=== PATIENT | male | born 1985 | race Caucasian/White ===

== ENCOUNTER 2018-02-09 15:47 | Emergency (ER) | payer SELFPAY ==
--- NOTE | 2018-02-09 16:02 | ER Document Report ---
ED Medical Screen (RME) - General TRAVEL OUTSIDE OF THE [place] IN LAST 30 DAYS: No <KAREN LAROSE - Last Filed: 02/09/18 16:02> <CAYLA ABBOTT - Last Filed: 02/09/18 18:44> - General Chief Complaint: Overdose Stated Complaint: POSSIBLE OVERDOSE Time Seen by Provider: 02/09/18 15:58 Notes: 32 years old male with heroin addiction, apparently unintentionally overdosed on it last night., Sister brought him here because he also had any thoughts of ending his life. Not on any psychiatric medications. (KAREN LAROSE) - Related Data Allergies/Adverse Reactions: No Known Allergies Allergy (Unverified 02/09/18 15:49) - Vital signs Vitals: Temp Pulse Resp BP Pulse Ox 97.9 F 82 18 115/73 100 02/09/18 15:51 02/09/18 15:51 02/09/18 15:51 02/09/18 15:51 02/09/18 15:51 Course <KAREN LAROSE - Last Filed: 02/09/18 16:02> - Laboratory Result Diagrams: 02/09/18 16:23 02/09/18 16:23 <CAYLA ABBOTT - Last Filed: 02/09/18 18:44> - Re-evaluation Re-evalutation: 02/09/18 18:[address] patient on some clonidine and Prozac. Resting comfortably at this time. No acute distress. We will have mental health see if he can meet criteria for inpatient treatment as he has some passive suicidal ideation and has a substance abuse problem. May meet criteria for IVC. Family members and patient seem to be in agreement at this time. Laboratory 02/09/18 02/09/18 02/09/18 16:23 16:23 16:23 WBC 4.9 RBC 5.50 Hgb 16.6 Hct 48.4 MCV 88 MCH 30.2 MCHC 34.4 RDW 12.9 Plt Count 243 Seg Neutrophils % 64.6 Lymphocytes % 20.9 Monocytes % 10.9 Eosinophils % 2.4 Basophils % 1.2 Absolute Neutrophils 3.1 Absolute Lymphocytes 1.0 Absolute Monocytes 0.5 Absolute Eosinophils 0.1 Absolute Basophils 0.1 Sodium 143.6 Potassium 4.5 Chloride 106 Carbon Dioxide 25 Anion Gap 13 BUN 9 Creatinine 0.61 Est GFR ( Amer) > 60 Est GFR (Non-Af Amer) > 60 Glucose 100 Calcium 9.8 Total Bilirubin 1.1 Direct Bilirubin 0.2 Neonat Total Bilirubin Not Reportable Neonat Direct Bilirubin Not Reportable Neonat Indirect Bili Not Reportable AST 28 ALT 40 Alkaline Phosphatase 115 Total Protein 7.4 Albumin 4.5 Urine Color YELLOW Urine Appearance CLEAR Urine pH 8.0 Ur Specific [place] 1.010 Urine Protein NEGATIVE Urine Glucose (UA) NEGATIVE Urine Ketones NEGATIVE Urine Blood NEGATIVE Urine Nitrite NEGATIVE Urine Bilirubin NEGATIVE Urine Urobilinogen NEGATIVE Ur Leukocyte Esterase NEGATIVE Urine WBC (Auto) 0 Urine RBC (Auto) 1 Urine Mucus (Auto) RARE Urine Ascorbic Acid NEGATIVE Salicylates < 1.0 L Urine Opiates Screen Urine Methadone Screen Acetaminophen < 10 L Ur Barbiturates Screen Ur Phencyclidine Scrn Ur Amphetamines Screen U Benzodiazepines Scrn Urine Cocaine Screen U Marijuana (THC) Screen Serum Alcohol < 10 02/09/18 16:23 WBC RBC Hgb Hct MCV MCH MCHC RDW Plt Count Seg Neutrophils % Lymphocytes % Monocytes % Eosinophils % Basophils % Absolute Neutrophils Absolute Lymphocytes Absolute Monocytes Absolute Eosinophils Absolute Basophils Sodium Potassium Chloride Carbon Dioxide Anion Gap BUN Creatinine Est GFR ( Amer) Est GFR (Non-Af Amer) Glucose Calcium Total Bilirubin Direct Bilirubin Neonat Total Bilirubin Neonat Direct Bilirubin Neonat Indirect Bili AST ALT Alkaline Phosphatase Total Protein Albumin Urine Color Urine Appearance Urine pH Ur Specific [place] Urine Protein Urine Glucose (UA) Urine Ketones Urine Blood Urine Nitrite Urine Bilirubin Urine Urobilinogen Ur Leukocyte Esterase Urine WBC (Auto) Urine RBC (Auto) Urine Mucus (Auto) Urine Ascorbic Acid Salicylates Urine Opiates Screen UNCONFIRMED POSITIVE Urine Methadone Screen NEGATIVE Acetaminophen Ur Barbiturates Screen UNCONFIRMED POSITIVE Ur Phencyclidine Scrn NEGATIVE Ur Amphetamines Screen NEGATIVE U Benzodiazepines Scrn NEGATIVE Urine Cocaine Screen NEGATIVE U Marijuana (THC) Screen NEGATIVE Serum Alcohol (CAYLA ABBOTT) - Vital Signs Vital signs: Temp Pulse Resp BP Pulse Ox 97.9 F 82 18 115/73 100 02/09/18 15:51 02/09/18 15:51 02/09/18 15:51 02/09/18 15:51 02/09/18 15:51 - Laboratory Laboratory results interpreted by me: 02/09/18 16:23 Salicylates < 1.0 L Acetaminophen < 10 L Doctor's Discharge <KAREN LAROSE - Last Filed: 02/09/18 16:02> <CAYLA ABBOTT - Last Filed: 02/09/18 18:44> - Discharge Clinical Impression: Heroin abuse Condition: Good Referrals: SPARKLE IRWIN MD [ACTIVE STAFF] - Follow up as needed
[2018-02-09 16:46] LABS: ABSOLUTE BASOPHILS # (AUTO) 0.1 10^3/uL (0.0-0.2); ABSOLUTE EOSINOPHILS # (AUTO) 0.1 10^3/uL (0.0-0.6); ABSOLUTE MONOCYTES (AUTO) 0.5 10^3/uL (0.1-1.4); ABSOLUTE NEUT (AUTO) 3.1 10^3/uL (1.7-8.2); APPEARANCE,URINE CLEAR; BASOPHILS % (AUTO) 1.2 % (0-2); BILIRUBIN,URINE NEGATIVE (NEGATIVE); COLOR,URINE YELLOW; EOSINOPHILS % (AUTO) 2.4 % (0-6); GLUCOSE, URINE NEGATIVE (NEGATIVE); HEMATOCRIT 48.4 % (37.9-51.0); HEMOGLOBIN 16.6 g/dL (13.5-17.0); KETONES,URINE NEGATIVE (NEGATIVE); LEUKOCYTE ESTERASE,URINE NEGATIVE (NEGATIVE); LYMPHOCYTES % (AUTO) 20.9 % (13-45); MEAN CORPUSCULAR HEMOGLOBIN 30.2 pg (27.0-33.4); MEAN CORPUSCULAR HGB CONC 34.4 g/dL (32.0-36.0); MEAN CORPUSCULAR VOLUME 88 fl (80-97); MONOCYTES % (AUTO) 10.9 % (3-13); NITRITE,URINE NEGATIVE (NEGATIVE); PLATELET COUNT 243 10^3/uL (150-450); PROTEIN,URINE NEGATIVE (NEGATIVE); RED CELL DISTRIBUTION WIDTH 12.9 % (11.5-14.0); SEGMENTED NEUTROPHILS % (AUTO) 64.6 % (42-78); TOTAL CELLS COUNTED % (AUTO) 100 %; UROBILINOGEN,URINE NEGATIVE mg/dL (<2.0); WHITE BLOOD COUNT 4.9 10^3/uL (4.0-10.5)
[2018-02-09 17:01] LABS: URINE AMPHETAMINES SCREEN NEGATIVE; URINE BARBITURATES SCREEN UNCONFIRMED POSITIVE; URINE BENZODIAZEPINES SCREEN NEGATIVE; URINE COCAINE SCREEN NEGATIVE; URINE MARIJUANA (THC) SCREEN NEGATIVE; URINE METHADONE SCREEN NEGATIVE; URINE PHENCYCLIDINE SCREEN NEGATIVE
[2018-02-09 17:04] LABS: ALANINE AMINOTRANSFERASE 40 U/L (21-72); ALBUMIN 4.5 g/dL (3.5-5.0); ALKALINE PHOSPHATASE 115 U/L (38-126); ANION GAP 13 (5-19); ASPARTATE AMINO TRANSFERASE 28 U/L (17-59); BILIRUBIN,DIRECT 0.2 mg/dL (0.0-0.4); BILIRUBIN,TOTAL 1.1 mg/dL (0.2-1.3); BLOOD UREA NITROGEN 9 mg/dL (7-20); CALCIUM 9.8 mg/dL (8.4-10.2); CARBON DIOXIDE 25 mmol/L (22-30); CHLORIDE 106 mmol/L (98-107); GLUCOSE 100 mg/dL (75-110); SODIUM 143.6 mmol/L (137-145); TOTAL PROTEIN 7.4 g/dL (6.3-8.2)
[2018-02-09 17:06] LABS: POTASSIUM 4.5 mmol/L (3.6-5.0)
[2018-02-09 17:07] LABS: ACETAMINOPHEN < 10 ug/mL (10-30); ALCOHOL < 10 mg/dL (NONE DETECTED); SALICYLATE < 1.0 mg/dL (2.0-20.0)
[2018-02-09] MEDS ORDERED: CLONIDINE 0.1 MG/24 HR PATCH.TDWK TD ONE (17:21)
--- NOTE | 2018-02-09 17:24 | ER Document Report ---
ED Psych Disorder / Suicide - General Chief Complaint: Overdose Stated Complaint: POSSIBLE OVERDOSE Time Seen by Provider: 02/09/18 15:58 Notes: 32-year-old male to the emergency department for evaluation of overdose. Patient is a heroin addict. Has been using heroin for a long time. Has overdosed before. Today he thinks that maybe he did overdose. When asked if this was intentional he said no. States though that sometimes he wishes that he would not wake up after injecting. It would be easier if he was just . Has a baby on the way. 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 Was at a treatment facility 1 week ago. Was there for 4 days and then left voluntarily and immediately went back to using heroin. Denies any history of frequent fevers. No chest pain, shortness of breath, rashes or lesions. No prior history of osteomyelitis or endocarditis. Sister is present and states that his mother went to check on him and she could not wake him up. He had just injected heroin. No Narcan was given. TRAVEL OUTSIDE OF THE [place] IN LAST 30 DAYS: No - HPI Patient complains to provider of: Overdose Onset: Just prior to arrival - Related Data Allergies/Adverse Reactions: No Known Allergies Allergy (Unverified 02/09/18 15:49) Past Medical History - General Information source: Patient - Social History Smoking Status: Current Every Day Smoker Chew tobacco use (# tins/day): No Frequency of alcohol use: Occasional Drug Abuse: Heroin Lives with: Family Family History: Reviewed & Not Pertinent Patient has suicidal ideation: Yes Patient has homicidal ideation: No - Medical History Medical History: Negative Renal/ Medical History: Denies: Hx Peritoneal Dialysis Review of Systems - Review of Systems Notes: Constitutional: denies: Chills, Diaphoresis, Fever, Malaise, Weakness EENT: denies: Eye discharge, Blurred vision, Tearing, Double vision, Nose congestion, Nose discharge, Throat swelling, Mouth pain Cardiovascular: denies: Palpitations, Heart racing, Orthopnea, Dyspnea, Chest pain Respiratory: denies: Cough, Hurts to breathe, Wheezing, Shortness of breath Gastrointestinal: denies: Abdominal pain, Diarrhea, Nausea, Vomiting, Black stools, bright red blood in stool Genitourinary: denies: Burning, Dysuria, Discharge, Frequency, Flank pain, Hematuria Musculoskeletal: denies: Joint pain, Joint swelling, Muscle pain, Muscle stiffness, back pain Hematologic/Lymphatic: denies: Anemia, Easy bleeding, Easy bruising, Blood clots Neurological/Psychological: denies: Confusion, Dementia, Depression, Loss of consciousness. Does have a history of substance abuse Skin: No lesions, no masses, no skin breakdown, no abscesses Physical Exam - Vital signs Vitals: Temp Pulse Resp BP Pulse Ox 97.9 F 82 18 115/73 100 02/09/18 15:51 02/09/18 15:51 02/09/18 15:51 02/09/18 15:51 02/09/18 15:51 Interpretation: Normal - General General appearance: Appears well, Alert - HEENT Head: Normocephalic, Atraumatic Eyes: Normal Pupils: PERRL - Respiratory Respiratory status: No respiratory distress Chest status: Nontender Breath sounds: Normal Chest palpation: Normal - Cardiovascular Rhythm: Regular Heart sounds: Normal auscultation Murmur: No - Abdominal Inspection: Normal Distension: No distension Bowel sounds: Normal Tenderness: Nontender Organomegaly: No organomegaly - Back Back: Normal, Nontender - Extremities General upper extremity: Normal inspection, Nontender, Normal color, Normal ROM , Normal temperature General lower extremity: Normal inspection, Nontender, Normal color, Normal ROM , Normal temperature, Normal weight bearing. No: Nelia's sign - Neurological Neuro grossly intact: Yes Cognition: Normal Orientation: AAOx4 [place] Coma Scale Eye Opening: Spontaneous [place] Coma Scale Verbal: Oriented [place]inta Coma Scale Motor: Obeys Commands Aminta Coma Scale Total: 15 Speech: Normal Motor strength normal: LUE, RUE, LLE, RLE Sensory: Normal - Psychological Associated symptoms: Normal affect, Normal mood - Skin Skin Temperature: Warm Skin Moisture: Dry Skin Color: Normal Course - Re-evaluation Re-evalutation: 02/09/18 17:26 Laboratory 02/09/18 02/09/18 02/09/18 16:23 16:23 16:23 WBC 4.9 RBC 5.50 Hgb 16.6 Hct 48.4 MCV 88 MCH 30.2 MCHC 34.4 RDW 12.9 Plt Count 243 Seg Neutrophils % 64.6 Lymphocytes % 20.9 Monocytes % 10.9 Eosinophils % 2.4 Basophils % 1.2 Absolute Neutrophils 3.1 Absolute Lymphocytes 1.0 Absolute Monocytes 0.5 Absolute Eosinophils 0.1 Absolute Basophils 0.1 Sodium 143.6 Potassium 4.5 Chloride 106 Carbon Dioxide 25 Anion Gap 13 BUN 9 Creatinine 0.61 Est GFR ( Amer) > 60 Est GFR (Non-Af Amer) > 60 Glucose 100 Calcium 9.8 Total Bilirubin 1.1 Direct Bilirubin 0.2 Neonat Total Bilirubin Not Reportable Neonat Direct Bilirubin Not Reportable Neonat Indirect Bili Not Reportable AST 28 ALT 40 Alkaline Phosphatase 115 Total Protein 7.4 Albumin 4.5 Urine Color YELLOW Urine Appearance CLEAR Urine pH 8.0 Ur Specific [place] 1.010 Urine Protein NEGATIVE Urine Glucose (UA) NEGATIVE Urine Ketones NEGATIVE Urine Blood NEGATIVE Urine Nitrite NEGATIVE Urine Bilirubin NEGATIVE Urine Urobilinogen NEGATIVE Ur Leukocyte Esterase NEGATIVE Urine WBC (Auto) 0 Urine RBC (Auto) 1 Urine Mucus (Auto) RARE Urine Ascorbic Acid NEGATIVE Salicylates < 1.0 L Urine Opiates Screen Urine Methadone Screen Acetaminophen < 10 L Ur Barbiturates Screen Ur Phencyclidine Scrn Ur Amphetamines Screen U Benzodiazepines Scrn Urine Cocaine Screen U Marijuana (THC) Screen Serum Alcohol < 10 02/09/18 16:23 WBC RBC Hgb Hct MCV MCH MCHC RDW Plt Count Seg Neutrophils % Lymphocytes % Monocytes % Eosinophils % Basophils % Absolute Neutrophils Absolute Lymphocytes Absolute Monocytes Absolute Eosinophils Absolute Basophils Sodium Potassium Chloride Carbon Dioxide Anion Gap BUN Creatinine Est GFR ( Amer) Est GFR (Non-Af Amer) Glucose Calcium Total Bilirubin Direct Bilirubin Neonat Total Bilirubin Neonat Direct Bilirubin Neonat Indirect Bili AST ALT Alkaline Phosphatase Total Protein Albumin Urine Color Urine Appearance Urine pH Ur Specific [place] Urine Protein Urine Glucose (UA) Urine Ketones Urine Blood Urine Nitrite Urine Bilirubin Urine Urobilinogen Ur Leukocyte Esterase Urine WBC (Auto) Urine RBC (Auto) Urine Mucus (Auto) Urine Ascorbic Acid Salicylates Urine Opiates Screen UNCONFIRMED POSITIVE Urine Methadone Screen NEGATIVE Acetaminophen Ur Barbiturates Screen UNCONFIRMED POSITIVE Ur Phencyclidine Scrn NEGATIVE Ur Amphetamines Screen NEGATIVE U Benzodiazepines Scrn NEGATIVE Urine Cocaine Screen NEGATIVE U Marijuana (THC) Screen NEGATIVE Serum Alcohol Currently patient's labs are fairly unremarkable. Patient is here voluntarily. I am concerned that he is a heavy substance abuser and is likely going to overdose sooner rather than later. I am going to place him on a 24-hour petition. [facility] allows this. Family members bagging for this to happen. Patient is willing to have this happen as well if he can get treatment. - Vital Signs Vital signs: Temp Pulse Resp BP Pulse Ox 97.9 F 82 18 115/73 100 02/09/18 15:51 02/09/18 15:51 02/09/18 15:51 02/09/18 15:51 02/09/18 15:51 - Laboratory Result Diagrams: 02/09/18 16:23 02/09/18 16:23 Laboratory results interpreted by me: 02/09/18 16:23 Salicylates < 1.0 L Acetaminophen < 10 L - EKG Interpretation by Me EKG shows normal: Sinus rhythm, [place], Intervals, QRS Complexes, ST-T Waves [place]/QRS: RBBB Discharge - Discharge Clinical Impression: Heroin abuse Condition: Good Referrals: SPARKLE IRWIN MD [ACTIVE STAFF] - Follow up as needed
[2018-02-09] MEDS ORDERED: FLUOXETINE HCL 20 MG CAPSULE PO ONE (17:25)
--- NOTE | 2018-02-09 18:17 | EKG REPORT ---
SEVERITY:- ABNORMAL ECG - SINUS RHYTHM INCOMPLETE RIGHT BUNDLE BRANCH BLOCK : Confirmed by: Prasad Ortiz MD 09-Feb-2018 18:17:24
[2018-02-10] MEDS ORDERED: ACETAMINOPHEN 325 MG TABLET PO ONE (06:31)
[2018-02-10] MEDS ORDERED: HYDROXYZINE PAMOATE 50 MG CAPSULE PO ONE (10:10)
--- NOTE | 2018-02-10 10:10 | ER Document Report ---
Doctor's Note Notes: 02/10/18 10:08 Rounds: Chart reviewed and patient interviewed. Patient is addicted to heroin, last used about 1 AM. Customarily uses it every 4-6 hours. Patient says that he is undergoing withdrawal now. Having abdominal cramping and diarrhea. Patient is being evaluated here additionally because he had expressed some suicidal thoughts. Lab studies were positive for opioids and barbiturates. Vital signs are all essentially normal. We will try some Vistaril to see if it helps patient's symptoms. Patient appears to be medically stable for transfer or discharge. Toma Pinzon MD
[2018-02-10] MEDS ORDERED: BENZTROPINE MESYLATE 1 MG TABLET PO ONE (10:44)
[2018-02-10] MEDS ORDERED: HALOPERIDOL 5 MG TABLET PO ONE (10:44)
[2018-02-10] MEDS ORDERED: VENLAFAXINE HCL 37.5 MG CAP.SR.24H PO ONE (10:45)
[2018-02-10] MEDS ORDERED: BUSPIRONE HCL 10 MG TABLET PO ONE (10:45)
[2018-02-10 12:48] VITALS: BP 118/64
--- NOTE | 2018-02-14 11:48 | PSYCHOLOGICAL NOTE ---
Psych Note - Psych Note Date seen by psych provider: 02/10/18 Time seen by psych provider: 07:25 Psych Note: Reason for Consult: overdose Consent permissions: Patient's sister, Liam 32-year-old male to the emergency department for evaluation of heroin overdose. Patient reports he arrived to [facility] ED because he overdosed. He reports that he is trying to get help he currently feels "bad because of withdrawals." He states he has been using for a couple years since 2009 when his director [place] brought in a Percocet; "since then it has been every day nonstop." He reports he uses approximately 1 g of heroin daily. He reports that he did go to a detox center a couple weeks ago however left prior to finishing treatment and states that he has been on a "worse path than before" and used immediately upon release. He reports he left because he did not want to be there anymore; "I want for the wrong reason." He reports that he does not have any history of mental health is never been to outpatient mental health or substance abuse treatment. He states he accidentally overdosed and does "sometimes" have passive site suicidal ideation i.e. no plans means or intent. Patient reports that he would like help with assistance in detox because "I do not want to feel like this anymore." Behavior health team contacted the [facility], [address], and [facility]; no beds are available. Patient's sister confirms she understands the process of obtaining detox bed. She disclosed that she will continue to work with [facility] and trying to get the patient a bed. She reports that both her parents were also addicts so she understands the process. Patient is alert and orientated to person, place, time and circumstance. Mood is irritable with congruent affect. Patient is currently going through withdrawal symptoms. Patient denies current suicidal ideation and homicidal ideation. Delusions are absent behaviors congruent with an intact reality based presentation i.e. organized and linear thought process. Eye contact is fair. Conversational speech was within normal rate, tone and prosody. Intellectual abilities appear to be within the average range. Attention and concentration are fair. Insight, judgment, impulse control appear to be historically poor due to substance abuse. Medication recommendations per [facility]'s contracted psychiatrist Dr. Jaden OSCAR are as follows Effexor 37.5 mg B daily BuSpar 10 mg twice daily Diagnosis 304.00 (F11.20) opiate use disorder; severe 292.0 (F11.23) opiate withdrawal Impression\\plan:Patient is cleared from acute psychiatric services. Patient reports accidental overdose on heroin with chronic passive suicidal ideation ( i.e. no plans means or intent) that comes and goes. Patient denies any current suicidal ideation. Patient reports he went to detox last week however it left prior to finishing treatment. Behavior health team contacted all area detox centers; no beds are available. Patient is recommended to follow-up with [facility] for continued assistance in obtaining detox and substance abuse treatment. Both patient and patient's sister state they understand process and are willing to contact [facility]. Medication recommendations have been provided. Dr. Jones was consulted and the care management this patient; attending physicians in agreement with recommendations and disposition.
== END 2018-02-10 12:48 | disposition home or self-care (01) ==
LOC: ER 15:47
DX: F11.10 Opioid abuse, uncomplicated (principal); F17.200 Nicotine dependence, unspecified, uncomplicated
CPT/HCPCS: 93005; 99284; 36415; 80307 ×4; 85025; 80053; 81001; 93010; J3490 ×2